=== PATIENT | female | born 1995 | race Caucasian/White ===

== ENCOUNTER 2021-05-29 11:44 | Inpatient (IN) | payer SELFPAY ==
[2021-05-29] VITALS (25 sets, daily range): BP systolic 116–167; BP diastolic 73–108
[~2021-05-29] VITALS: Ht 152.4 cm; Wt 75.0 kg
[2021-05-29] MEDS ORDERED: MAGNESIUM SULFATE 4% INJ 20GM/500ML (40MG/ML) As Ordered ONE (12:48)
[2021-05-29] MEDS ORDERED: PRENTAB9 PO (13:04)
[2021-05-29] MEDS ORDERED: BICITRA 30ML SOLN UDC PO ONE (13:05)
[2021-05-29] MEDS ORDERED: OXYTOCIN DRIP 30 UNITS in IV 1 EA IV PRN (13:05)
[2021-05-29] MEDS ORDERED: ceFAZolin SOD 2 GM in IV 1 EA IV ONE (13:05)
[2021-05-29] MEDS: LR 1,000 ML IV SCH ×2 (13:18→21:49)
[2021-05-29] MEDS: MAG Sulf (OBGYN) 20GM/500ML 20,000 MG in IV 1 EA IV SCH ×2 (13:18→15:04)
[2021-05-29 13:49] LABS: BASO % 0.1 % (0.0-1.0); HEMATOCRIT 34.8 % (36.0-47.0); HEMOGLOBIN 11.8 g/dl (12.0-15.5); LYMPH # 1.2 10^3/uL (1.5-5.0); LYMPH % 7.9 % (24.0-44.0); MEAN CORPUSCULAR HEMOGLOBIN 29.8 pg (27.0-33.0); MEAN CORPUSCULAR HGB CONC 33.9 g/dl (32.0-36.5); MEAN CORPUSCULAR VOLUME 87.9 fl (80.0-96.0); MONO # 0.4 10^3/uL (0.0-0.8); MONO % 2.4 % (2.0-8.0); NEUTROPHILS # 12.9 10^3/uL (1.5-8.5); NEUTROPHILS % 88.6 % (36.0-66.0); PLATELET COUNT, AUTOMATED 191 10^3/uL (150-450); RED BLOOD COUNT 3.96 10^6/uL (4.00-5.40); WHITE BLOOD COUNT 14.6 10^3/uL (4.0-10.0)
[2021-05-29 13:53] LABS: APPEARANCE, URINE CLEAR (CLEAR); BACTERIA, URINE AUTO NEGATIVE (NEGATIVE); BILIRUBIN, URINE AUTO NEGATIVE (NEGATIVE); BLOOD, URINE BLOOD 1+ (NEGATIVE); COLOR, URINE STRAW (YELLOW); GLUCOSE, URINE (UA) AUTO NEGATIVE (NEGATIVE); KETONE, URINE AUTO 1+ mg/dL (NEGATIVE); LEUKOCYTE ESTERASE, URINE AUTO NEGATIVE (NEGATIVE); MUCUS, URINE SMALL (NEGATIVE); NITRITE, URINE AUTO NEGATIVE (NEGATIVE); PROTEIN, URINE AUTO 1+ mg/dL (NEGATIVE); RBC, URINE AUTO 2 /HPF (0-3); SPECIFIC GRAVITY URINE AUTO 1.011 (1.002-1.035); SQUAMOUS EPITHELIAL CELL UR AU 0 /HPF (0-6); UROBILINOGEN, URINE AUTO 0.2 mg/dL (0.0-2.0); WBC, URINE AUTO 0 /HPF (0-3)
[2021-05-29 14:00] LABS: CREATININE,RANDOM URINE 31.5 MG/DL; TOTAL PROTEIN,RANDOM URINE 50.4 MG/DL (0.0-12.0)
[2021-05-29] MEDS ORDERED: diphenhydrAMINE 50MG/ML VIAL (J1200) IV PRN (14:15)
[2021-05-29] MEDS ORDERED: ONDANSETRON 4MG/2ML VIAL IV PRN ×3 (14:15→15:20)
[2021-05-29] MEDS ORDERED: METOCLOPRAMIDE INJ 10MG/2ML VIAL (J2765 PER 1) IV PRN (14:15)
[2021-05-29] MEDS ORDERED: NALBUPHINE HCL 10 MG/ML AMP (J2300) IV PRN (14:15)
[2021-05-29] MEDS ORDERED: NALOXONE INJ 0.4MG/1ML VIAL (J2310 PER 1MG) IV PRN ×2 (14:15)
--- NOTE | 2021-05-29 14:28 | HPE ---
HISTORY AND PHYSICAL DATE OF ADMISSION: 05/29/2021 HISTORY OF PRESENT ILLNESS: Dana is a 25-year-old 2, para 1,0,0,1 at 33-3/7 weeks gestation with an EDC of 07/14/2021 based on ultrasound performed today at [facility]. She reports she thinks she is approximately 38 weeks gestation based on her LNMP. She was breast feeding and had irregular menstrual cycles. She presents to labor and delivery today via ambulance as a transfer of care from [facility] due to severe hypertension, eclamptic seizure prior to arrival to the [facility] ED. She reports that she awoke at approximately 0230 in the morning and had a generalized tonic-clonic seizure. She denies vaginal bleeding, leakage of fluid and regular painful contractions. The fetus has been active. She does report that she did have the onset of a headache approximately 2-3 days ago as well as visual disturbances throughout the night and currently some blurred vision. Of note, she is of [place] culture. She was receiving care at home with lay-supervisor logging. At [facility] she received 20 mg IV Labetalol x2, Keppra 1000 mg IV, Ativan 1 mg IV. They did give her magnesium 4 gm loading dose as well as continue her on magnesium 2 gm IV per hour. She received one 12 mg I.M. injection of betamethasone for lung maturity. She did undergo an ultrasound which demonstrated cephalic presentation, single fetus, weighing 2053 gm, measuring 33-3/7 weeks gestation. Her chest x-ray at [facility] was negative. CT was negative. She did have some labs performed. COVID negative. Hemoglobin 11.5, hematocrit 35.4, platelets 213, alk phos 140, LDH 274 and her uric acid was 8.7. She received a third dose of Labetalol 40mg IV x1 in the ambulance enroute to [facility]. MEDICAL HISTORY: Noncontributory. OBSTETRIC LABS: A+, antibody screen negative. OBSTETRIC HISTORY: She had a term vaginal delivery x1 in 2019, male weighing 7+lb. She reports she was in the hospital but cannot remember the indication for hospital admission. ALLERGIES: NO KNOWN DRUG ALLERGIES. FAMILY HISTORY: Noncontributory. SOCIAL HISTORY: She is , she is a nonsmoker. Denies alcohol and drug use. No history of any sexually transmitted infection. She denies history of abuse physical, sexual and emotional. CURRENT MEDICATIONS AT HOME: None. PHYSICAL EXAMINATION: GENERAL: Upon arrival she does appear stable. She does arouse and answer questions appropriately when spoken to. VITAL SIGNS: Blood pressures are elevated, 140/96, 152/108, 160/107, 158/102; temp is 97.5, pulse 82, respirations 18. heart rate is 135 with moderate variability and positive accelerations, negative decelerations. Contractions every 6 minutes, palpate mild STERILE VAGINAL EXAM: Fingertip dilated, 50% effaced, ballotable, posterior, soft, no bloody show with the exam. ASSESSMENT: 1. Intrauterine at 33-3/7 weeks based on sono today. 2. Severe preeclampsia, status post eclamptic seizure, currently stable. PLAN: Per consult with Dr. Geovany Gomez. Plan for primary section as the patient is remote from delivery. Repeat labs have been ordered, CBC, preeclamptic profiles, spot urine, panel, HIV, hepatitis B. The risks, benefits and alternatives have been reviewed with the patient. All her questions have been answered. She has been verbally consented for primary section and blood products if they are necessary. Plan to proceed toward primary section. Dr Gomez in house. JAMARI
[2021-05-29] MEDS ORDERED: OXYTOCIN INJ 10 UNITS/ML VIAL (J2590) As Ordered ONE (14:32)
[2021-05-29] MEDS ORDERED: ACETAMINOPHEN 1000MG 100ML IV BTL (OFIRMEV) (J0131 PER 10MG) As Ordered ONE (14:32)
[2021-05-29] MEDS ORDERED: dexameTHASONE 4 MG/ML 1ML VIAL (J1100 PER 1MG) As Ordered ONE (14:32)
[2021-05-29] MEDS ORDERED: MORPHINE PRES-FREE INJ 10 MG/10 ML VIAL (J2274) As Ordered ONE (14:32)
[2021-05-29] MEDS ORDERED: ONDANSETRON 4MG/2ML VIAL As Ordered ONE (14:32)
[2021-05-29] MEDS ORDERED: KETOROLAC 60MG 2ML VIAL As Ordered ONE (14:32)
[2021-05-29 14:34] LABS: CORD GAS ABE A -1.4; CORD GAS O2 SAT A 41.1 %; CORD GAS PCO2 A 53.6 mmHg; CORD GAS PH A 7.303 UNITS; CORD GAS PO2 A 19.7 mmHg; CORD GAS SBC A 21.8 MEQ/L; CORD GAS TCO2 A 27.6 MEQ/L
[2021-05-29 14:36] LABS: CORD GAS ABE V -0.9; CORD GAS HCO3 V 24.4 MEQ/L; CORD GAS O2 SAT V 70.7 %; CORD GAS PCO2 V 42.5 mmHg; CORD GAS PH V 7.376 UNITS; CORD GAS PO2 V 28.3 mmHg; CORD GAS TCO2 V 25.7 MEQ/L
[2021-05-29] MEDS ORDERED: OXYTOCIN 30 UNITS IN 0.9% NaCl 500ML IV BAG (J2590) As Ordered ONE (14:54)
[2021-05-29] MEDS ORDERED: PERCOCET 5MG/325MG TAB PO PRN ×2 (14:55)
[2021-05-29] MEDS ORDERED: RHOGAM 300 MCG (1500 IU) INJ (J2790) IM SCH (14:55)
[2021-05-29] MEDS ORDERED: MEASLES,MUMPS,RUBELLA VACCINE INJ (MMR-II) (90707) SC SCH (14:55)
[2021-05-29] MEDS ORDERED: fentaNYL 100 MCG/2 ML INJECTION (J3010) IV PRN (15:20)
[2021-05-29] MEDS ORDERED: oxyCODONE 5MG TAB PO PRN (15:20)
[2021-05-29 15:23] LABS: ALT/SGPT 21 U/L (12-78); BILIRUBIN,TOTAL 0.2 MG/DL (0.2-1.0); CREATININE FOR GFR 0.64 MG/DL (0.55-1.30); GLOMERULAR FILTRATION RATE > 60.0 (>60); LDH LACTATE DEHYDROGENASE 328 U/L (84-246)
[2021-05-29] MEDS ORDERED: OXYTOCIN DRIP 30 UNITS in IV 1 EA IV ONE (15:35)
[2021-05-29 16:12] LABS: HIV 1&2 SCREEN CENTAUR NEGATIVE (NEGATIVE)
[2021-05-29] MEDS ORDERED: SIMETHICONE 80MG CHEW TAB PO PRN (17:00)
[2021-05-29] MEDS ORDERED: LABETALOL 200 MG TAB PO SCH (19:35)
[2021-05-29] MEDS: KETOROLAC 30 MG/ML 1ML VIAL IV SCH (21:07)
[2021-05-29] MEDS: DOCUSATE SODIUM 100MG CAPSULE PO SCH (21:10)
[2021-05-30] VITALS (10 sets, daily range): BP systolic 118–135; BP diastolic 67–87
[2021-05-30] MEDS: MAG Sulf (OBGYN) 20GM/500ML 20,000 MG in IV 1 EA IV SCH (02:12)
[2021-05-30] MEDS: KETOROLAC 30 MG/ML 1ML VIAL IV SCH ×2 (03:12→08:57)
[2021-05-30 06:34] LABS: HEMATOCRIT 30.5 % (36.0-47.0); HEMOGLOBIN 10.2 g/dl (12.0-15.5); MEAN CORPUSCULAR HEMOGLOBIN 29.7 pg (27.0-33.0); MEAN CORPUSCULAR HGB CONC 33.4 g/dl (32.0-36.5); MEAN CORPUSCULAR VOLUME 88.9 fl (80.0-96.0); PLATELET COUNT, AUTOMATED 195 10^3/uL (150-450); RED BLOOD COUNT 3.43 10^6/uL (4.00-5.40); WHITE BLOOD COUNT 14.1 10^3/uL (4.0-10.0)
[2021-05-30] MEDS: LR 1,000 ML IV SCH (07:24)
[2021-05-30] MEDS: LABETALOL 100MG TAB PO SCH ×2 (08:57→20:44)
[2021-05-30] MEDS: DOCUSATE SODIUM 100MG CAPSULE PO SCH ×2 (08:57→20:44)
[2021-05-30] MEDS: PRENATAL VITAMINS CHEWABLE TABLET PO SCH (08:57)
[2021-05-30] MEDS: IBUPROFEN 800 MG TAB PO SCH (17:00)
[2021-05-31] MEDS: IBUPROFEN 800 MG TAB PO SCH ×2 (01:28→09:31)
[2021-05-31 01:39] VITALS: BP 149/76
[2021-05-31 05:36] VITALS: BP 134/76
[2021-05-31] MEDS ORDERED: DOK1CAP4 PO (07:22)
[2021-05-31] MEDS ORDERED: PERCOCET PO (07:22)
[2021-05-31] MEDS ORDERED: IBUP80TA PO (07:22)
--- NOTE | 2021-05-31 07:30 | DS.PDOC ---
Discharge Summary General Date of Admission May 29, 2021 at 12:40 Date of Discharge 05/31/21 Attending Physician: Geovany Gomez DO Discharge Summary PROCEDURES PERFORMED DURING STAY: section. ADMITTING DIAGNOSES: 1. Eclampsia remote from delivery. DISCHARGE DIAGNOSES: 1. Eclampsia remote from delivery. COMPLICATIONS/CHIEF COMPLAINT: Unstable Blood Pressures. HISTORY OF PRESENT ILLNESS: Dana is a 25-year-old 2, para 1,0,0,1 at 33-3/7 weeks gestation with an EDC of 07/14/2021 based on ultrasound performed today at [facility]. She reports she thinks she is approximately 38 weeks gestation based on her LNMP. She was breast feeding and had irregular menstrual cycles. She presents to labor and delivery today via ambulance as a transfer of care from [facility] due to severe hypertension, eclamptic seizure prior to arrival to the [facility] ED. She reports that she awoke at approximately 0230 in the morning and had a generalized tonic-clonic seizure. She denies vaginal bleeding, leakage of fluid and regular painful contractions. The fetus has been active. She does report that she did have the onset of a headache approximately 2-3 days ago as well as visual disturbances throughout the night and currently some blurred vision. Of note, she is of Muslim culture. She was receiving care at home with lay-airline reservation agent. At [facility] she received 20 mg IV Labetalol x2, Keppra 1000 mg IV, Ativan 1 mg IV. They did give her magnesium 4 gm loading dose as well as continue her on magnesium 2 gm IV per hour. . HOSPITAL COURSE: Patient underwent section for eclampsia remote from delivery. section was uncomplicated estimated blood loss is 500ml. Patient received an additional 24 hours of magnesium sulfate therapy. Her blood pressures remain mild range. Patient remained asymptomatic and was diuresing well following her surgery. Patient was discharged home postoperative day #2 at the meeting all discharge criteria is in stable condition. She has been instructed to follow-up in 1 week for blood pressure check. DISCHARGE MEDICATIONS: Please see below. ALLERGIES: Please see below. PHYSICAL EXAMINATION ON DISCHARGE: VITAL SIGNS: Please see below. GENERAL: No distress HEENT: WNL ABDOMINAL EXAMINATION: Fundus firm. Dressing intact EXTREMITIES: Equal strength and motion SKIN: Intact NEUROLOGICAL EXAMINATION: Grossly intact PSYCHIATRIC EXAMINATION: Appropriate LABORATORY DATA: Please see below. PROGNOSIS: Good ACTIVITY: As tolerated. Pelvic rest. DIET: As tolerated DISCHARGE PLAN: Discharge today. DISPOSITION: Home DISCHARGE INSTRUCTIONS: 1. Pelvic rest. Continue vitamins. Medications as ordered. Call with fever, nausea, vomiting, chills, foul lochia, wound exudate or evidence infection. RTO early next week for blood pressure check. DISCHARGE CONDITION: Stable Vital Signs/I&Os Vital Signs Date Time Temp Pulse Resp B/P (MAP) Pulse Ox O2 Delivery O2 Flow Rate FiO2 05/31/21 05:36 98.5 65 16 134/76 (95) 05/30/21 06:29 97 Room Air I&O- Last 24 Hours up to 6 AM 05/31/21 06:00 Intake Total 2264.7 ml Output Total 1866 ml Balance 398.7 ml Discharge Medications Scheduled Labetalol HCl (Labetalol HCl) 200 Mg Tablet, 200 MG PO BID Scheduled PRN Docusate Sodium (Docusate Sodium) 100 Mg Capsule, 100 MG PO BID PRN for CONSTIPATION, (Reported) Ibuprofen (Ibuprofen) 800 Mg Tablet, 800 MG PO TID PRN for PAIN, (Reported) Oxycodone HCl/Acetaminophen (Oxycodone-Acetaminophen 5-325) 1 Each Tablet, 1 TAB PO Q4H PRN for PAIN LEVEL 5-10, (Reported) Allergies Coded Allergies: No Known Allergies (Unverified , 05/29/21) MAYRA CLEVELAND MD. May 31, 2021 07:30
[2021-05-31 07:58] LABS: HEMATOCRIT 29.6 % (36.0-47.0); HEMOGLOBIN 9.6 g/dl (12.0-15.5); MEAN CORPUSCULAR HEMOGLOBIN 29.5 pg (27.0-33.0); MEAN CORPUSCULAR HGB CONC 32.4 g/dl (32.0-36.5); MEAN CORPUSCULAR VOLUME 91.1 fl (80.0-96.0); PLATELET COUNT, AUTOMATED 166 10^3/uL (150-450); RED BLOOD COUNT 3.25 10^6/uL (4.00-5.40); WHITE BLOOD COUNT 12.1 10^3/uL (4.0-10.0)
[2021-05-31] MEDS: PRENATAL VITAMINS CHEWABLE TABLET PO SCH (09:31)
[2021-05-31] MEDS: DOCUSATE SODIUM 100MG CAPSULE PO SCH (09:31)
[2021-05-31 09:32] VITALS: BP 139/85
[2021-05-31] MEDS: LABETALOL 100MG TAB PO SCH (09:32)
[2021-05-31 10:00] VITALS: BP 136/87
--- NOTE | 2021-06-05 09:45 | RO ---
OPERATIVE NOTE DATE OF OPERATION: 05/29/2021 INDICATIONS: Dana is a 25-year-old female, Orthodox lady, who was brought into the ER after having a seizure at home. She was found to be severely preeclamptic. She was admitted to labor and delivery. Upon evaluation her pressures were out of control and she was remote from delivery. At this point decision was made to proceed with section. PREOPERATIVE DIAGNOSES: 1. Intrauterine at 33 weeks on ultrasound done today in emergency room, no care. 2. Severe preeclampsia, remote from delivery. POSTOPERATIVE DIAGNOSES: 1. Intrauterine at 33 weeks on ultrasound done today in emergency room, no care. 2. Severe preeclampsia, remote from delivery. 3. Questionable 38 weeks gestation based on appearance of the baby. PROCEDURE: Primary low transverse section. SURGEON: Geovany Gomez DO STONE BELT SANDER: Maria Luz Tovar ANESTHESIA: Spinal. COMPLICATIONS: None. ESTIMATED BLOOD LOSS: 500 mL. DESCRIPTION OF PROCEDURE: After obtaining informed consent the patient was taken to the operating room where spinal anesthetic was found to be adequate. She was prepped and draped in usual sterile fashion in supine position. At this point elliptical incision was made with help of Maria Luz Tovar. This incision was carried down to the fascia; fascia was incised in midline fashion and carried through laterally. The superior aspect of the fascia was grasped with Zachary clamp, tented up and dissected off the rectus muscles sharply. The inferior aspect was dissected off in similar fashion. Rectus muscles were in midline fashion. Peritoneum was identified, peritoneal cavity entered bluntly. Superior and inferior dissection of peritoneum was then done with good visualization of the bladder. At this point a Mobius skin retractor was placed. Low transverse uterine incision was made, was delivered in atraumatic fashion. Nose and mouth were bulb suctioned, cord doubly clamped and cut and infant was handed over to the waiting public address system installer. Cord blood and cord gas were sent. Placenta was removed manually. Uterus was cleared of all clot and debris. Uterine incision was then repaired in two separate layers of #0 Vicryl sutures. Pelvis was copiously irrigated with normal saline and suctioned out. Attention was turned to the peritoneum which was closed in running fashion using 2-0 Vicryl, fascia closed in two separate segments and skin was reapproximated in subcuticular fashion using 3-0 Vicryl on Ciro. Steri-Strips were placed. The patient tolerated the procedure well and was transferred to recovery room in stable condition. cc: [facility]
== END 2021-05-31 14:05 | disposition home or self-care (01) | DRG 540 ==
LOC: M LDI 12:40 → M OBS 05-30 15:00
PROVIDERS: ADMIT Obstetrics & Gynecology; ATTEND Obstetrics & Gynecology
PROC: 10D00Z1 Extraction of Products of Conception, Low, Open Approach (ICD-10-PCS; principal; 2021-05-29 13:33)
DX: O14.14 Severe pre-eclampsia complicating childbirth (principal); Z3A.33 33 weeks gestation of pregnancy; Z37.0 Single live birth

== ENCOUNTER 2021-06-02 04:51 | Inpatient (IN) | payer SELFPAY ==
[~2021-06-02] VITALS: Ht 152.4 cm; Wt 71.8 kg
[2021-06-02] VITALS (40 sets, daily range): BP systolic 107–203; BP diastolic 59–118
[~2021-06-02 04:51] MED LIST: DOK1CAP7 PO; IBUP80TA PO; PERCOCET PO; PRENTAB9 PO
[2021-06-02 06:13] LABS: ALBUMIN 2.6 GM/DL (3.2-5.2); ALT/SGPT 58 U/L (12-78); BILIRUBIN,DIRECT < 0.1 MG/DL (0.0-0.2); BILIRUBIN,TOTAL 0.3 MG/DL (0.2-1.0); BLOOD UREA NITROGEN 13 MG/DL (7-18); CALCIUM LEVEL 8.8 MG/DL (8.5-10.1); CARBON DIOXIDE LEVEL 28 MEQ/L (21-32); CHLORIDE LEVEL 109 MEQ/L (98-107); CREATININE FOR GFR 0.54 MG/DL (0.55-1.30); GLOMERULAR FILTRATION RATE > 60.0 (>60); GLUCOSE, FASTING 87 MG/DL (70-100); MAGNESIUM LEVEL 1.9 MG/DL (1.8-2.4); POTASSIUM SERUM 4.8 MEQ/L (3.5-5.1); SODIUM LEVEL 143 MEQ/L (136-145); TOTAL PROTEIN 6.1 GM/DL (6.4-8.2); URIC ACID 5.7 MG/DL (2.6-6.0)
[2021-06-02 06:19] LABS: BASO % 0.2 % (0.0-1.0); EOS # 0.3 10^3/uL (0.0-0.5); EOS % 2.4 % (0.0-3.0); HEMATOCRIT 34.3 % (36.0-47.0); HEMOGLOBIN 11.4 g/dl (12.0-15.5); LYMPH % 19.7 % (24.0-44.0); MEAN CORPUSCULAR HEMOGLOBIN 29.8 pg (27.0-33.0); MEAN CORPUSCULAR HGB CONC 33.2 g/dl (32.0-36.5); MEAN CORPUSCULAR VOLUME 89.8 fl (80.0-96.0); MONO # 0.7 10^3/uL (0.0-0.8); MONO % 7.2 % (2.0-8.0); NEUTROPHILS # 7.2 10^3/uL (1.5-8.5); NEUTROPHILS % 69.9 % (36.0-66.0); PLATELET COUNT, AUTOMATED 196 10^3/uL (150-450); RED BLOOD COUNT 3.82 10^6/uL (4.00-5.40); WHITE BLOOD COUNT 10.3 10^3/uL (4.0-10.0)
[2021-06-02] MEDS ORDERED: LABETALOL 100MG/20ML VIAL IV STA ×3 (06:37→08:46)
[2021-06-02] MEDS ORDERED: ONDANSETRON 4MG/2ML VIAL IV ONE (06:55)
[2021-06-02 07:02] LABS: CK-MB VALUE MASS 2.9 NG/ML (<3.6); CPK CREATINE PHOSPHOKINASE 213 U/L (26-192); MB/CK RELATIVE INDEX 1.36 (< OR =4); TROPONIN I 0.09 NG/ML (< 0.10)
[2021-06-02] MEDS: MORPHINE 4 MG/ML 1ML VIAL/SYRINGE (J2270) IV PRN ×2 (07:34→11:03)
[2021-06-02] MEDS: PRENATAL VITAMINS CHEWABLE TABLET PO SCH (09:00)
[2021-06-02] MEDS ORDERED: NIFEdipine 30 MG XL TAB PO SCH (09:00)
[2021-06-02] MEDS ORDERED: OXYC1TAB23 PO (09:13)
[2021-06-02] MEDS ORDERED: IBUP80TA PO (09:13)
[2021-06-02] MEDS ORDERED: DOCU100C16 PO (09:13)
[2021-06-02] MEDS ORDERED: HOME MED LIST COMPLETE! XX SCH (09:15)
[2021-06-02] MEDS ORDERED: MAG Sulf (L&D) 4 GM/100 ML 4 GM in IV 1 EA IV ONE (09:20)
[2021-06-02] MEDS ORDERED: CALCIUM GLUCONATE 1,000 MG in D5W MINI-BAG PLUS 100 ML IV PRN (09:20)
[2021-06-02] MEDS ORDERED: ACETAMINOPHEN 500 MG TAB PO PRN (09:20)
--- NOTE | 2021-06-02 09:44 | REPVR ---
PROCEDURE INFORMATION: Exam: CT Head Without Contrast Exam date and time: 06/02/2021 7:08 AM Age: 25 years old Clinical indication: Other: Hypertensive uregency/emergency TECHNIQUE: Imaging protocol: Computed tomography of the head without contrast. Radiation optimization: All CT scans at this facility use at least one of these dose optimization techniques: automated exposure control; mA and/or kV adjustment per patient size (includes targeted exams where dose is matched to clinical indication); or iterative reconstruction. COMPARISON: No relevant prior studies available. FINDINGS: Brain: Normal. No hemorrhage. Unremarkable white matter. No mass effect. Cerebral ventricles: No ventriculomegaly. Paranasal sinuses: Visualized sinuses are unremarkable. No fluid levels. Mastoid air cells: Visualized mastoid air cells are well aerated. Bones/joints: Unremarkable. No acute fracture. Soft tissues: Unremarkable. IMPRESSION: No acute intracranial abnormality. Electronically signed by: Car Chery On 06/02/2021 09:43:49 AM
--- NOTE | 2021-06-02 09:45 | REPVR ---
PROCEDURE INFORMATION: Exam: XR Chest Exam date and time: 06/02/2021 7:32 AM Age: 25 years old Clinical indication: Other: HTN; ; Patient HX: Emergency csection due to preclampsia. TECHNIQUE: Imaging protocol: XR of the chest. Views: 2 views. COMPARISON: No relevant prior studies available. FINDINGS: Lungs: Unremarkable. No consolidation. Pleural spaces: Unremarkable. No pleural effusion. No pneumothorax. Heart/Mediastinum: Unremarkable. No cardiomegaly. Bones/joints: No acute fracture. Mild pectus deformity Other findings: Needle-like density projects over the thoracic inlet on the frontal view and is really not well seen on the lateral. This may lie in or on the patient. IMPRESSION: No acute disease of the chest. Possible foreign body. Electronically signed by: Car Chery On 06/02/2021 09:45:01 AM
--- NOTE | 2021-06-02 09:52 | HPEPDOC ---
General Date of Admission Jun 02, 2021 at 09:17 Date of Service: Jun 02, 2021 Chief Complaint The patient is a 25-year-old female admitted with a reason for visit of Pre- Clampsia,. Source: Patient, Family Exam Limitations: No limitations History of Present Illness Dana is a 25yo Restorationism s/p uncomplicated PLTCS on 05/29 when she presented with diagnosis of eclampsia. She had a witnessed seizure that morning in the setting of 3 days of headache and vision changes preceding it and presented to [facility] where she was treated with initial dose MgSO4, keppra, ativan, betamethasone and her care was then transferred here. Growth scan at the referring hospital suggested dating of 33wk, but patient believed she was closer to 38wk. She went on to have a benign post-op/post- course and was normotensive after delivery. She was discharged on 05/31. She presented to the ER early this morning with complaint of recurrent TOMPKINS. It did not resolve with motrin. No vision changes or upper abdominal pain. No chest pain or shortness of breath. She otherwise feels well. Normal lochia. Baby breast feeding well. No fevers/chills. Incisional discomfort well managed. In the ER she was noted to have severe range bp's up to 190's systolic, and underwent head CT (report still pending) and labs were drawn which are stable from her discharge. She was given 3 doses of 20mg IV labetalol and bp remains in the severe range. TOMPKINS mildly improved after tylenol. Home Medications Scheduled PRN Docusate Sodium (Docusate Sodium) 100 Mg Capsule, 100 MG PO BID PRN for CONSTIPATION, (Reported) Ibuprofen (Ibuprofen) 800 Mg Tablet, 800 MG PO TID PRN for PAIN, (Reported) Oxycodone HCl/Acetaminophen (Oxycodone-Acetaminophen 5-325) 1 Each Tablet, 1 TAB PO Q4H PRN for PAIN LEVEL 5-10, (Reported) Allergies Coded Allergies: No Known Allergies (Unverified , 05/29/21) Past Medical History Medical History benign aside from recent dx of eclampsia. , prior delivery was full term uncomplicated Surgical History PLTCS Family History Significant Family History: No pertinent family hx Social History * Smoker: Denies Alcohol: Denies Drugs: denies Recent Travel/Sick Contacts: Denies: Recent travel, Recent sick contacts Psychosocial History: No pertinent psych hx with no hx of abuse A-FIB/CHADSVASC A-FIB History Current/History of A-Fib/PAF?: No Current PO Anticoag Therapy: No Review of Systems Constitutional: Denies: Chills, Fever, Malaise, Night Sweats, Weakness, Fatigue, Weight Loss, Lethargy, Other Eyes: Denies: Vision change ENT: Reports: Head Aches Pulmonary: Denies: Dyspnea Cardiovascular: Denies: Chest Pain Gastrointestinal: Denies: Nausea, Vomiting, Abdominal Pain Neurological: Denies: Weakness, Numbness, Incoordination, Change in speech, Confusion, Seizures Psych: Reports: Mood Normal Physical Examination General Exam: Positive: Alert, Cooperative, No Acute Distress Eye Exam: Positive: Conjunctiva & lids normal; Negative: Sclera icteric ENT Exam: Positive: Atraumatic Chest Exam: Positive: Normal air movement Heart Exam: Positive: Rate Normal Abdomen Exam: Positive: Soft; Negative: Tenderness Extremity Exam: Negative: Edema Skin Exam: Positive: Nl turgor and temperature Neuro Exam: Positive: Normal Speech Psych Exam: Positive: Mental status NL, Mood NL Vital Signs Vital Signs Date Time Temp Pulse Resp B/P (MAP) Pulse Ox O2 Delivery O2 Flow Rate FiO2 06/02/21 09:10 184/91 (122) 06/02/21 09:05 70 06/02/21 08:50 96 06/02/21 07:55 16 06/02/21 07:34 Room Air 06/02/21 04:52 98.0 Laboratory Data Labs 24H Laboratory Tests 2 06/02/21 05:34: Anion Gap 6L, Glomerular Filtration Rate > 60.0, Uric Acid 5.7, Calcium Level 8.8, Magnesium Level 1.9, Total Bilirubin 0.3, Direct Bilirubin < 0.1, Aspartate Amino Transf (AST/SGOT) 50H, Alanine Aminotransferase (ALT/SGPT) 58, Alkaline Phosphatase 99, Total Creatine Kinase 213H, Creatine Kinase MB 2.9, Creatine Kinase MB Relative Index 1.36, Troponin I 0.09, Total Protein 6.1L, Albumin 2.6L, Albumin/Globulin Ratio 0.7L 06/02/21 06:08: Immature Granulocyte % (Auto) 0.6, Neutrophils (%) (Auto) 69.9H, Lymphocytes (%) (Auto) 19.7L, Monocytes (%) (Auto) 7.2, Eosinophils (%) (Auto) 2.4, Basophils (%) (Auto) 0.2, Neutrophils # (Auto) 7.2, Lymphocytes # (Auto) 2.0, Monocytes # (Auto) 0.7, Eosinophils # (Auto) 0.3, Basophils # (Auto) 0.0, Nucleated Red Blood Cells % (auto) 0.0 06/02/21 06:24: Urine Color STRAW, Urine Appearance CLEAR, Urine pH 8.0, Urine Specific Hope 1.003, Urine Protein 1+H, Urine Glucose (UA) NEGATIVE, Urine Ketones NEGATIVE, Urine Blood 3+H, Urine Nitrite NEGATIVE, Urine Bilirubin NEGATIVE, Urine Urobilinogen 0.2, Urine Leukocyte Esterase TRACEH, Urine WBC (Auto) 8H, Urine RBC (Auto) 69H, Urine Hyaline Casts (Auto) 0, Urine Bacteria (Auto) NEGATIVE, Urine Squamous Epithelial Cells 2, Urine Mucus (Auto) SMALL, Urine Sperm (Auto) CBC/BMP Laboratory Tests 06/02/21 05:34 06/02/21 06:08 Microbiology Microbiology 06/02/21 Urine Culture, Received Pending Assessment/Plan Dana is a 25yo Restorationism s/p uncomplicated PLTCS on 05/29 when she presented with diagnosis of eclampsia, re-presenting today with headache and elevated bp with concern for post- pre-eclampsia. BP remains severe range despite 3 doses of 20mg IV labetalol. TOMPKINS mildly improved with tylenol but not resolved. When patient was discharged two days ago, she was normotensive. Other vitals aside from bp are wnl, afebrile. Benign exam. CT head report pending. Labs are unchanged from prior admission. Plan / VTE VTE Prophylaxis Ordered?: No Plan Plan Admit to L&D for IV MgSO4 4g/2g for planned 24hr IVF LR, titrate to total 125ml/hr IVF Bedrest Vitals q1hr with neuro checks Hydralazine 10mg IV prn severe range bp's after MgSO4 initiated Start nifedipine 30mg tomorrow morning CBC and CMP tomorrow morning Regular diet Bedside commode vs bedpan Tylenol prn headache, motrin prn incisional pain, PNV Baby is with her and she is SCDs Allyson Cifuentes MD Jun 02, 2021 09:52
[2021-06-02 10:19] LABS: RSV AMPLIFICATION NEGATIVE (NEGATIVE)
[2021-06-02] MEDS ORDERED: MAGNESIUM *L&D* 4GM/100ML BAG (40MG/ML) As Ordered ONE (10:47)
[2021-06-02] MEDS ORDERED: MAGNESIUM SULFATE 4% INJ 20GM/500ML (40MG/ML) As Ordered ONE ×2 (10:48→18:48)
[2021-06-02] MEDS: hydrALAZINE 20MG/ML 1ML VIAL (J0360 PER 20MG) IV SCH ×2 (11:00→11:24)
[2021-06-02] MEDS: LR 1,000 ML IV SCH ×2 (11:06→23:01)
[2021-06-02] MEDS: MAG Sulf (OBGYN) 20GM/500ML 20,000 MG in IV 1 EA IV SCH ×2 (11:09→21:23)
[2021-06-02 11:50] LABS: CK-MB VALUE MASS 2.1 NG/ML (<3.6); MB/CK RELATIVE INDEX 1.48 (< OR =4); TROPONIN I 0.24 NG/ML (< 0.10)
[2021-06-02] MEDS: IBUPROFEN 800 MG TAB PO PRN (18:17)
[2021-06-02] MEDS ORDERED: LABETALOL 200 MG TAB PO SCH ×2 (19:15→21:00)
[2021-06-03] VITALS (23 sets, daily range): BP systolic 106–136; BP diastolic 59–86
[2021-06-03 06:58] LABS: HEMATOCRIT 35.2 % (36.0-47.0); HEMOGLOBIN 11.6 g/dl (12.0-15.5); MEAN CORPUSCULAR HEMOGLOBIN 29.3 pg (27.0-33.0); MEAN CORPUSCULAR VOLUME 88.9 fl (80.0-96.0); PLATELET COUNT, AUTOMATED 246 10^3/uL (150-450); RED BLOOD COUNT 3.96 10^6/uL (4.00-5.40)
[2021-06-03] MEDS: MAG Sulf (OBGYN) 20GM/500ML 20,000 MG in IV 1 EA IV SCH (07:21)
[2021-06-03 07:26] LABS: ALBUMIN 2.7 GM/DL (3.2-5.2); ALT/SGPT 45 U/L (12-78); BILIRUBIN,TOTAL 0.3 MG/DL (0.2-1.0); BLOOD UREA NITROGEN 10 MG/DL (7-18); CALCIUM LEVEL 7.1 MG/DL (8.5-10.1); CARBON DIOXIDE LEVEL 32 MEQ/L (21-32); CHLORIDE LEVEL 99 MEQ/L (98-107); CREATININE FOR GFR 0.59 MG/DL (0.55-1.30); GLOMERULAR FILTRATION RATE > 60.0 (>60); GLUCOSE, FASTING 97 MG/DL (70-100); SODIUM LEVEL 136 MEQ/L (136-145); TOTAL PROTEIN 6.2 GM/DL (6.4-8.2)
--- NOTE | 2021-06-03 08:48 | IPNPDOC ---
Progress Note Date of Service: Jun 03, 2021 Day#: 5 Progress Note Progress Note, Re-admission for pre-eclampsia SUBJECT: Dana is a 25yo Jewish s/p uncomplicated PLTCS on 05/29 when she presented with diagnosis of eclampsia, re-admitted on 06/02 for headache and elevated bp with concern for post- pre-eclampsia. She was started on IV MgSO4 at 11am and given several doses of IV labetalol, started on PO labetalol and nifedipine. Since yesterday, her headache has much improved (now 1/10 instead of 810). Since last night she has been solidly normotensive. Nguyen cat heter in place draining clear urine and she is tolerating regular diet. Breast feeding without issue. Reports lochia is like a normal period. No vision changes/abdominal pain. No CP/SOB/n/v/f/c. OBJECTIVE: VITAL SIGNS: Within normal limits, afebrile. Alert and oriented times three. Abdomen: Fundus firm at U-3. Soft, NTTP. Extremities: no pain with palpation of calves Labs reviewed and remain wnl Assessment: Dana is a 25yo Jewish s/p uncomplicated PLTCS on 05/29 when she presented with diagnosis of eclampsia, re-admitted on 06/02 for headache and elevated bp with concern for post- pre-eclampsia. BP solidly normotensive since last night on MgSO4, headache much improved to 1/10. Labs normal, stable. Exam benign. Robust UOP. Patient clinically improving. Plan: Continue IV MgSO4 2g/hr until 11am today IVF LR, titrate to total 125ml/hr IVF Bedrest Vitals q1hr with neuro checks Discontinue nifedipine, labetalol PO decreased to 200mg BID Regular diet Remove nguyen later today after MgSO4 is discontinued Tylenol prn headache, motrin prn incisional pain, PNV Baby is with her and she is SCDs Allyson Cifuentes MD VS, I&O, [facility] Vital Signs/I&O Vital Signs Date Time Temp Pulse Resp B/P (MAP) Pulse Ox O2 Delivery O2 Flow Rate FiO2 06/03/21 08:04 80 116/75 (89) 06/03/21 05:05 98.3 06/03/21 04:39 16 06/02/21 08:50 96 06/02/21 07:34 Room Air I&O- Last 24 Hours up to 6 AM 06/03/21 06:00 Intake Total 1250 ml Output Total 6200 ml Balance -4950 ml Laboratory Data 24H LABS Laboratory Tests 2 06/02/21 09:34: Coronavirus (COVID-19)(PCR) NEGATIVE, Influenza Type A (RT-PCR) NEGATIVE, Influenza Type B (RT-PCR) NEGATIVE, Respiratory Syncytial Virus (PCR) NEGATIVE 06/02/21 10:57: Total Creatine Kinase 142, Creatine Kinase MB 2.1, Creatine Kinase MB Relative Index 1.48, Troponin I 0.24#H 06/03/21 06:41: Nucleated Red Blood Cells % (auto) 0.0, Anion Gap 5L, Glomerular Filtration Rate > 60.0, Calcium Level 7.1#L, Total Bilirubin 0.3, Aspartate Amino Transf (AST/SGOT) 25, Alanine Aminotransferase (ALT/SGPT) 45, Alkaline Phosphatase 104, Total Protein 6.2L, Albumin 2.7L, Albumin/Globulin Ratio 0.8L CBC/BMP Laboratory Tests 06/03/21 06:41 Microbiology Microbiology 06/02/21 Urine Culture - Final, Complete Allyson Cifuentes MD Jun 03, 2021 08:48
[2021-06-03] MEDS: PRENATAL VITAMINS CHEWABLE TABLET PO SCH (09:03)
[2021-06-03] MEDS: LABETALOL 200 MG TAB PO SCH ×2 (09:04→20:50)
[2021-06-03] MEDS: IBUPROFEN 800 MG TAB PO PRN (14:45)
--- NOTE | 2021-06-03 19:38 | ECGEPIP ---
[facility] - ED Test Date: 2021-06-02 Pat Name: DANA TRACEY Department: Room: - Gender: Female Security Researcher: : 1995 Requested By: SARAH Varner Order Number: [id number] Reading MD: Dana Peterson Measurements Intervals [place] Rate: 60 P: 38 W[place]: 156 QRS: 83 QRSD: 74 T: 46 QT: 384 QTc: 384 Interpretive Statements Normal sinus rhythm Cannot rule out Anterior infarct , age undetermined No prior Electronically Signed on 06-03-2021 19:38:28 EDT by Dana Peterson
[2021-06-04 02:00] VITALS: BP 129/70
[2021-06-04 06:00] VITALS: BP 138/88
[2021-06-04] MEDS: PRENATAL VITAMINS CHEWABLE TABLET PO SCH (08:57)
[2021-06-04 08:58] VITALS: BP 121/82
[2021-06-04] MEDS: LABETALOL 200 MG TAB PO SCH (08:58)
[2021-06-04 10:00] VITALS: BP 129/71
[2021-06-04] MEDS ORDERED: LABE20TAB PO (12:35)
--- NOTE | 2021-06-04 12:50 | DS.PDOC ---
Discharge Summary General Date of Admission Jun 02, 2021 at 09:17 Date of Discharge 06/04/2021 Discharge Summary DATE OF ADMISSION: 06/02/2021 DATE OF DISCHARGE:. 06/04/2021 ADMISSION DIAGNOSIS:. preeclampsia with severe features. History of recent antepartum eclampsia. DISCHARGE DIAGNOSIS: Same: Clinically improved/stable DISCHARGE SUMMARY: Dana is a 25-year-old G2 now P1102, who delivered on May 29 via primary low transverse section. On that date, she was diagnosed with eclampsia. Her postoperative/ course during her original hospitalization was uncomplicated, and she was discharged on 05/31/2021. She was readmitted on 06/02/2021 after presenting to the emergency department with complaints of severe headache in the setting of severe range hypertension. She was immediately treated with antihypertensives and placed on magnesium sulfate. CT of the head revealed no intracranial abnormality/pathology. . A chest x-ray revealed no evidence of cardiopulmonary disease. Labs were drawn and there was no evidence of HELLP syndrome Magnesium sulfate was discontinued on 06/03/2021, after her blood pressures were well-controlled on antihypertensive medication. Her symptoms/headache completely resolved after medical therapy, and on 06/04/2021 she was meeting all discharge criteria. She was instructed to continue labetalol 200 mg by mouth twice a day. She is well aware of symptoms/severe features of preeclampsia, she has reliable transportation and a good support system. She will return if she becomes symptomatic again. She'll be followed closely in the office within the week; blood pressure will be reassessed and adjustments to her medication will be made as necessary. PHYSICAL EXAMINATION ON DATE OF DISCHARGE: Normotensive. Normal heart rate. Afebrile. HEART: Regular rate and rhythm. No murmurs, gallops, or rubs. LUNGS: Clear to auscultation bilaterally. ABDOMEN: Soft, nontender, nondistended. Incision bandage clean and dry. EXTREMITIES: Nonedematous, nontender. Item Value Date Time Sodium Level 136 MEQ/L 06/03/21 06 Potassium Level 5.0 MEQ/L 06/03/21 06 Chloride Level 99 MEQ/L 06/03/21 06 Carbon Dioxide Level 32 MEQ/L 06/03/21 06 Anion Gap 5 MEQ/L L 06/03/21 06 Blood Urea Nitrogen 10 MG/DL 06/03/21 0641 Creatinine 0.59 MG/DL 06/03/21 0641 Fasting Glucose 97 MG/DL 06/03/21 0641 Uric Acid 5.7 MG/DL 06/02/21 0534 Aspartate Amino Transf (AST/SGOT) 25 U/L 06/03/21 0641 Alanine Aminotransferase (ALT/SGPT) 45 U/L 06/03/21 0641 White Blood Count 8.0 10^3/uL 06/03/21 0641 Hemoglobin 11.6 g/dl L 06/03/21 0641 Hematocrit 35.2 % L 06/03/21 0641 Platelet Count 246 10^3/uL 06/03/21 0641 Vital Signs/I&Os Vital Signs Date Time Temp Pulse Resp B/P (MAP) Pulse Ox O2 Delivery O2 Flow Rate FiO2 06/04/21 10:00 97.7 72 17 129/71 (90) 100 06/04/21 06:00 Room Air I&O- Last 24 Hours up to 6 AM 06/04/21 05:59 Intake Total 750 ml Output Total 2100 ml Balance -1350 ml Microbiology Microbiology 06/02/21 Urine Culture - Final, Complete Discharge Medications Scheduled Labetalol HCl (Labetalol HCl) 200 Mg Tablet, 200 MG PO BID Scheduled PRN Docusate Sodium (Docusate Sodium) 100 Mg Capsule, 100 MG PO BID PRN for CONSTIPATION, (Reported) Ibuprofen (Ibuprofen) 800 Mg Tablet, 800 MG PO TID PRN for PAIN, (Reported) Oxycodone HCl/Acetaminophen (Oxycodone-Acetaminophen 5-325) 1 Each Tablet, 1 TAB PO Q4H PRN for PAIN LEVEL 5-10, (Reported) Allergies Coded Allergies: No Known Allergies (Unverified , 05/29/21) DOE MACHADO DO Jun 04, 2021 12:50
== END 2021-06-04 14:30 | disposition home or self-care (01) | DRG 561 ==
LOC: M ED 04:51 → M ED INP 09:17 → M LDI 10:43 → M OBS 06-03 15:00
PROVIDERS: ADMIT Obstetrics & Gynecology; ATTEND Obstetrics & Gynecology
DX: O14.15 Severe pre-eclampsia, complicating the puerperium (principal); Z20.822 Contact with and (suspected) exposure to COVID-19